=== PATIENT | male | born 1945 | race Caucasian/White ===

== ENCOUNTER → 2016-12-05 | Outpatient (CLI) | payer MEDICARE ==
[~2016-12-05] MED LIST: ASPI1TAB69 PO; CLOP75TA PO; CO Q100C9; DULO1CAP3 PO; FENO160T PO; HYDR-3288 PO; HYDR12.57 PO; LOSA100T PO; METO100T9 PO; MULT1CHW70 PO; SIMV10TA PO
[2016-12-05 09:52] LABS: AUTOMATED NEUTROPHIL # 2.8 TH/MM3 (1.8-7.7); BASOPHIL % 0.3 % (0.0-2.0); EOSINOPHIL # 0.1 TH/MM3 (0-0.4); EOSINOPHIL % 1.1 % (0.0-4.0); HEMATOCRIT 43.3 % (39.0-51.0); HEMO FLAGS DIFF FINAL; LYMPH % 35.8 % (9.0-44.0); MEAN CELL VOLUME 95.8 FL (80.0-100.0); MEAN CORPUSCULAR HEMOGLOBIN 33.9 PG (27.0-34.0); MEAN CORPUSCULAR HGB CONC 35.4 % (32.0-36.0); MONO % 11.7 % (0.0-8.0); NEUT % 51.1 % (16.0-70.0); PLATELET COUNT 173 TH/MM3 (150-450); RED BLOOD COUNT 4.52 MIL/MM3 (4.50-5.90); WHITE BLOOD COUNT 5.5 TH/MM3 (4.0-11.0)
--- NOTE | 2016-12-10 08:22 | EKG ---
Date Performed: 12/05/2016 Time Performed: 08:58:05 PTAGE: 71 years EKG: Sinus rhythm NORMAL ECG NO PREVIOUS TRACING DOCTOR: Emerson Forrester Interpretating Date/Time 12/10/2016 08:18:41
== END ==
LOC: CPRE 08:35
PROVIDERS: ATTEND Orthopaedic Surgery Orthopaedic Surgery of the Spine
DX: Z01.812 Encounter for preprocedural laboratory examination (principal); M48.06 Spinal stenosis, lumbar region; Z01.810 Encounter for preprocedural cardiovascular examination
CPT/HCPCS: 36415; 85025; 93005

== ENCOUNTER → 2016-12-18 | Day surgery (SDC) | payer MEDICARE ==
[~2016-12-18] VITALS: Ht 177.8 cm; Wt 104.1 kg
[~2016-12-18] MED LIST changes: +ACETAMINOPHEN/HYDROcodone 325 MG/7.5 MG TAB PO PRN; +BUPIVACAINE/EPINEPHRINE 0.25% 50 ML VIAL INFIL ONE; +CHLORHEXIDINE GLUCONATE 2 % 1 PACK (2 CLOTHS) TOPICAL PRN; +DEXAMETHASONE SOD PHOS 4 MG/ML VIAL ONE; +DO NOT ADM ANY ANTICOAGULANT DRUGS PRN; +FAMOTIDINE 20 MG/2 ML VIAL ONE; +GELATIN 12 MM/7 MM FOAM ONE; +GENTAMICIN SULFATE 80 MG/2 ML VIAL IRRIGATION ONE; +GENTAMICIN SULFATE 80 MG/2 ML VIAL ONE; +INSULIN HUMAN REGULAR 1,000 UNITS/10 ML VIAL SQ PRN; +KETOROLAC TROMETHAMINE 60 MG/2 ML (IM) VIAL IM ONE; +LACTATED RINGER'S 1000 ML INJ 1,000 ML IV SCH; +LACTATED RINGER'S 1000 ML INJ 2,000 ML IV ONE; +LACTATED RINGER'S 1000 ML IV PRN; +METOPROLOL TARTRATE 25 MG TAB PO PRN; +MIDAZOLAM HCL 2 MG/2 ML VIAL ONE; +MORPHINE SULFATE 4 MG/ML INJ IV PUSH PRN; +NEOSTIGMINE 3 MG/3 ML SYR IV ONE; +ONDANSETRON HCL 4 MG/2 ML VIAL IV PUSH ONE; +POVIDONE IODINE 5% (ANTISEPSIS KIT) 4 APPLICATIONS EACH NARE PRN; +POVIDONE IODINE 7.5% SCRUB 118 ML BOTTLE TOPICAL SCH; +PROPOFOL 200 MG/20 ML AMP IV ONE; +SODIUM CHLORID 0.9% 500 ML IV PRN; +SODIUM CHLORIDE 10 ML FLUSH BID IV FLUSH SCH; +SODIUM CHLORIDE 10 ML FLUSH PRN IV FLUSH; +ceFAZolin 2 GM PREMIX 50 ML IV SCH; +fentaNYL CITRATE 250 MCG/5 ML AMP ONE
[2016-12-18 06:09] VITALS: BP 122/81; PULSE 77; RESP 18; TEMP 98.9; O2SAT 98
--- NOTE | 2016-12-18 12:56 | PD.OP ---
cc: Ryan Stroud. Operative Report Date of Surgery: December 18, 2016 Preoperative Diagnosis: Lumbar spinal stenosis, L2-3 and L3 4, moderate to severe. Bilateral lumbosacral radiculopathy. Status post lumbar laminectomy and fusion L4 to S1 Postoperative Diagnosis: Same Procedure: Bilateral lumbar laminectomy L2, L3 from the right with bilateral lateral recess decompression. Bilateral lumbar laminectomy L3, L4 from the right with bilateral lateral recess decompression. Use of dilation port and variable Zoom microscope Anesthesia: Gen. Surgeon: Ryan Stroud Psychology Associate(s): STEPH Kinney Operation and Findings: EBL: 100 cc INDICATION: Patient is a 71-year-old male who is developing significant neurologic claudication. He's had a previous fusion at L4 5 with laminectomy L4 to S1. He has a transitional stenosis at the L3 4 level and a moderate to high-grade stenosis at the L2-3 level. Despite conservative care, the patient continued to be symptomatic. He now presents for surgical treatment. NOTE: Aggie Kinney PA-C was present for the entire surgical procedure as my lab assistant. In my medical opinion her skill and care was necessary for the proper management of this patient. PROCEDURE: The patient was brought to the operating room and anesthetized in the supine position. The patient was rolled to a prone position on a Ricky frame on a Antonio table. All pressure points were protected in the back was scrubbed with alcohol followed by Hibiclens followed by ChloraPrep and draped sterilely. A timeout was done and antibiotics were given. AP and lateral radiographic images were used to identify the proper levels and perform skin markings. We started from the right side at the L2-3 level. A paramedian incision was made and an off-midline fascial incision was made. A dilating system was placed down to the interlaminar space and held provisionally to the side of the table. The microscope was brought into the field. A high-speed bur under the microscope was used to perform a bilateral laminectomy from that side. A lateral recess decompression bilaterally was accomplished using straight and angled Kerrison punches. A partial medial facetectomy was accomplished. The crossing and exiting nerve roots were completely decompressed. We moved to the L3 4 level. A separate fascial incision was made. A dilating system was placed down to the interlaminar space and held provisionally to the side of the table. The microscope was brought back into the field. A high- speed bur under the microscope was used to perform a bilateral laminectomy from that side. A lateral recess decompression bilaterally was accomplished using straight and angled Kerrison punches. A partial medial facetectomy was accomplished. The crossing and exiting nerve roots were completely decompressed. The wound was irrigated copiously. Hemostasis was controlled. The deep fascia was approximated with interrupted 0 Vicryl suture subcutaneous suture with 2-0 Vicryl suture and skin with running intradermal 3-0 Vicryl followed by Dermabond. A field block with local anesthesia was utilized. A sterile dressing was applied. The sponge count and needle counts and instrument counts were all correct. The patient tolerated the procedure well as taken to the recovery room in satisfactory condition. FINDINGS: As a high-grade bilateral lateral recess stenosis at both levels. Lateral recess stenosis on the left side was worse at the L3 4 level. The final decompression was very satisfactory. There was no leak of cerebral spinal fluid. No complication was noted. Ryan Stroud MD December 18, 2016 12:56
--- NOTE | 2016-12-18 14:02 | RADRPT ---
EXAM DATE/TIME: 12/18/2016 10:53 [facility] COMPARISON: No previous studies available for comparison. INDICATIONS : L2-L3,L3-L4 laminectomy. Lower back pain. MEDICAL HISTORY : Spinal stenosis. SURGICAL HISTORY : Lumbar fusion L4-L5 ENCOUNTER: Initial ACUITY: 1 day PAIN SCORE: Non-responsive. LOCATION: Left lumbar FINDINGS: 2 intraoperative spot images of the lumbar spine demonstrate posterior fusion hardware at L4-5. CONCLUSION: Intraoperative spot images demonstrate posterior lumbar fusion hardware. Alex Lopez MD on December 18, 2016 at 14:00 Board Certified Radiologist. This report was verified electronically.
[2016-12-18 14:50] VITALS: BP 100/63; PULSE 87; RESP 18; TEMP 97.6; O2SAT 97
== END | disposition home or self-care (01) ==
LOC: HSDC 05:30
PROVIDERS: ATTEND Orthopaedic Surgery Orthopaedic Surgery of the Spine
DX: M48.06 Spinal stenosis, lumbar region (principal); M54.17 Radiculopathy, lumbosacral region; I10 Essential (primary) hypertension; Z98.1 Arthrodesis status
CPT/HCPCS: 00630; 63047; 63048; 72100; 76000; J1100; J1580; J1885; J2250; J2405; J2710; J3010; J7120